=== PATIENT | male | born 1975 | race Caucasian/White ===

== ENCOUNTER → 2021-04-07 08:08 | Outpatient (CLI) | payer OTHER, SELFPAY ==
--- NOTE | 2021-04-07 08:10 | DI.MRI.S_ITS ---
PROCEDURE: MR LUMBAR SPINE WO CON INDICATIONS: Radiculopathy, lumbar region TECHNIQUE: Noncontrast sagittal T1 spin echo and T2 fast echo, sagittal STIR, axial T1 and T2 fast spin echo through the lumbar spine. In cases with scoliosis, additional coronal T2 fast spin echo may be performed. COMPARISON: [facility] [place], CR, XR LUMBAR SPINE WITH OBLIQUES PLUS FLEXION EXTENSION, 02/17/2021, 13:20. None FINDINGS: Image quality: Excellent. Alignment and Curvature: There is normal bony alignment. The prior plain films do not clearly identify the level of the highest non rib-bearing lumbar vertebra. This dictation assumes that there are 5 non rib-bearing lumbar vertebral bodies, and that axial imaging was obtained T12-L1 through L5-S1. Bone Marrow: Marrow is of normal overall signal. No acute vertebral body compression fractures. Spinal Cord: Conus medullaris terminates at the L1 level. Visualized cord demonstrates normal signal and size. Paraspinous Soft Tissues: No paravertebral masses. T12-L1: Mild disc height loss. Mild right paracentral disc protrusion. Indentation on the thecal sac. Mild canal stenosis. Mild bilateral foraminal stenosis. L1-L2: Mild disc height loss. Mild facet hypertrophy. No canal stenosis or foraminal stenosis. L2-L3: No canal stenosis or foraminal stenosis. L3-L4: Facet hypertrophy. Mild canal stenosis. No foraminal stenosis. L4-L5: There is a moderate broad-based disc protrusion which indents on the thecal sac resulting in moderate to severe central canal stenosis. There is impingement of both L5 nerve roots in the lateral recesses. There is mild facet hypertrophy. There is mild right foraminal narrowing and mild to moderate left foraminal narrowing. L5-S1: Mild facet hypertrophy. No canal stenosis or foraminal stenosis. IMPRESSION: 1. If considering surgery, suggest careful correlation for correct surgical level. Current dictation assumes that axial imaging was obtained from T12-L1 through L5-S1. 2. Using the above numbering system, the significant findings are at L4-L5. There is posterior disc protrusion resulting in significant indentation on the thecal sac, moderate to severe central canal stenosis, and impingement of both L5 nerve roots in the lateral recesses. 3. Multilevel degenerative change as described above. 4. At T12-L1, there is a right paracentral disc protrusion resulting in mild canal stenosis. Dictated by: William Hutchins M.D. on 04/07/2021 at 9:50 Approved by: William Hutchins M.D. on 04/07/2021 at 9:57
== END ==
PROVIDERS: PCP Family Medicine; Referring Provider Physical Medicine & Rehabilitation; Visit Provider Physical Medicine & Rehabilitation
DX: M51.16 Intervertebral disc disorders with radiculopathy, lumbar region (principal); M47.26 Other spondylosis with radiculopathy, lumbar region; M51.15 Intervertebral disc disorders with radiculopathy, thoracolumbar region; M48.05 Spinal stenosis, thoracolumbar region; M48.061 Spinal stenosis, lumbar region without neurogenic claudication
CPT/HCPCS: 72148

== ENCOUNTER → 2023-10-29 17:20 | Outpatient (CLI) | payer OTHER, SELFPAY ==
[2023-10-29 17:35] LABS: Add Manual Diff / Slide Review NO; Basophils Absolute Auto 0 /uL (0-100); Basophils Percent Auto 0.5 % (0-2); Eosinophils Absolute Auto 100 /uL (0-450); Eosinophils Percent Auto 1.6 % (2-4); Hematocrit 45.3 % (41-53); Lymphocytes Absolute Auto 1900 /uL (1100-4500); Mean Corpuscular HGB Conc 35.3 % (30-36); Mean Corpuscular Hemoglobin 34.9 PG (26-34); Mean Corpuscular Volume 98.9 fL (80-100); Monocytes Absolute Auto 700 /uL (0-900); Monocytes Percent Auto 9.2 % (3-14); Neutrophils Absolute Auto 5100 /uL (1500-7000); Neutrophils Percent Auto 64.7 % (50-75); Platelet Count 208 X10^3/uL (150-400); Red Blood Cell Count 4.58 X10^6/uL (4.5-5.9); Red Cell Distribution Width 13.1 % (11.6-14.8); White Blood Cell Count 7.9 X10^3/uL (4.5-11.0)
[2023-10-29 17:53] LABS: Cholesterol 207 mg/dL (140-199); HDL Cholesterol 31 mg/dL (40-60); LDL Cholesterol Calculated 136 mg/dL (<100); Triglycerides 201 mg/dL (35-150)
== END ==
PROVIDERS: PCP Family Medicine; Referring Provider Family Medicine; Visit Provider Family Medicine
DX: E78.5 Hyperlipidemia, unspecified (principal); R03.0 Elevated blood-pressure reading, without diagnosis of hypertension
CPT/HCPCS: 36415; 80061; 85025

== ENCOUNTER 2024-02-07 06:51 | Day surgery (SDC) | payer OTHER, SELFPAY ==
--- NOTE | 2024-02-07 | PATH_ITS ---
[facility] Accession Number: [id number] No. of containers..01 Tissue . 01 Material submitted: . esophagus, E-G Junction - GE JUNCTION . 01 Diagnosis: GE JUNCTION: Gastroesophageal junction mucosa with mild chronic inflammation. No goblet cell metaplasia, dysplasia, or malignancy identified. [facility] 02/11/2024 143 Local . 01 Electronically signed: . Reed Alvarenga MD, Pathologist NPI- [id number] . 01 Gross description: . Received in formalin with two patient identifiers and GE junction biopsy, are two mancilla soft tissue fragments, 0.3-0.5 cm in greatest dimension, submitted in A1. ([id number]) /MRV 02/11/20241430 Local . 01 Pathologist provided ICD-10: K20.90 . 01 CPT . 533900 Specimen Comment: A courtesy copy of this report has been sent to [phone] Performed at: [address] [facility] [address], [place], [place] [id number] MD Reed Alvarenga MD Phone: [phone]
[2024-02-07 07:25] VITALS: BP 140/94; PULSE 71; RESP 16; TEMP 36.1; O2SAT 95
[2024-02-07] MEDS: SODIUM CHLORIDE 0.9% 1,000 ML 84 ML IV (07:36)
--- NOTE | 2024-02-07 07:40 | P.HP_ITS ---
History of Present Illness History of Present Illness Date Patient Seen: 02/07/24 Time Patient Seen: 07:40 Chief complaint: EGD/Colonoscopy Narrative: Esteban is a 48 year old man in need of colon cancer screening who also has GERD. See office note for details. FORMERLY [facility], 1928–1983 Medical History Insomnia Annual physical exam Onychomycosis Hyperlipidemia Social History Smoking Status: Never smoker alcohol intake: never Meds Home Medications and Allergies Home Medications Medication Instructions Recorded Confirmed Type sodium,potassium,mag sulfates 17.5 See Rx Instructions PO .COMPLEX 11/28/23 Rx gram-3.13 gram-1.6 gram oral soln #354 mL (Suprep Bowel Prep Kit) terbinafine HCl 250 mg tablet 250 mg PO DAILY 02/07/24 02/07/24 History Allergies Allergy/AdvReac Type Severity Reaction Status Date / Time No Known Drug Allergies Allergy Verified 02/07/24 07:22 Exam Vital Signs (past 8 hours): - 02/07/24 07:25 Temperature 96.9 F L Pulse Rate 71 Respiratory Rate 16 Blood Pressure 140/94 H Pulse Oximetry 95 Oxygen Delivery Method Room Air Oxygen Delivery Method Room Air Const General: healthy appearing Assessment & Plan Assessment and plan (1) Chronic GERD: Status: Acute (2) Encounter for screening for malignant neoplasm of colon: Status: Acute Plan EGD and colonoscopy Time-Based Coding :: [TOTAL MINUTES] spent with patient and on the chart (including review of chart, obtaining history, exam, reviewing outside data, placing orders, documenting exam and treatment plan, and counseling patient) on [DATE].
[2024-02-07 08:22] VITALS: BP 112/79; PULSE 65; RESP 23; TEMP 36.5; O2SAT 95
--- NOTE | 2024-02-07 08:22 | PM.OP.EC ---
Operative Date/Time/Diagnoses Date of procedure: 02/07/24 Time of procedure: 08:22 Pre-op diagnosis: GERD and colon cancer screening Post-op diagnosis: same Procedure & Clinicians Study performed: EGD and colonoscopy Same procedure as scheduled: Yes Surgeon: James Doran Procedure Notes Procedure in detail: Surgeon: James Doran MD Anesthesia: Rafaela Wells CRNA Procedure in detail: A timeout was performed. A bite blocked was placed and monitors were attached to the patient. The patient was positioned in the left lateral decubitus position. Sedation was administered. Once the patient was sedated the endoscope was inserted through the bite block and passed through the esophagus and stomach and into the duodenum. No abnormalities were seen in the duodenal. We then withdrew the scope into the stomach. No abnormalities were noted. The endoscope was retroflexed and a small hiatal hernia was noted. The endoscope was straightned and withdrawn into the esophagus. There were some mild inflammation at the GE junction and random biopsies were taken with cold forceps. EGD findings: Small hiatal hernia at mild inflammation of the GE junction Next we repositioned the patient for a colonoscopy. A digital rectal exam was performed and was normal. The colonoscope was inserted and advanced to the cecum. The appendiceal orifice was identified and photographed. The scope was slowly withdrawn over greater than 6 minutes. No abnormalities were found. The scope was retroflexed in the rectum and no other abnormalities were seen. Colonoscopy findings: Normal colon Total procedural EBL: 5 mL Scope withdrawal time: Greater than 6 minutes Sedation minutes: 28 minutes Post-procedure Recommendations: Colonscopy in 10 years Disposition: PACU
[2024-02-07 08:26] VITALS: BP 109/83; PULSE 61; RESP 18; O2SAT 94
[2024-02-07 08:31] VITALS: BP 118/82; PULSE 66; RESP 18; TEMP 36.6; O2SAT 96
[2024-02-07 08:38] VITALS: BP 126/77; PULSE 62; RESP 18; O2SAT 95
== END 2024-02-07 08:52 | disposition home or self-care (01) ==
PROVIDERS: PCP Family Medicine; Referring Provider Surgery; Visit Provider Surgery
PROC: 0DJ08ZZ Inspection of Upper Intestinal Tract, Via Natural or Artificial Opening Endoscopic (ICD-10-PCS; CPT 43239; principal; 2024-02-07 07:45)
PROC: 0DJD8ZZ Inspection of Lower Intestinal Tract, Via Natural or Artificial Opening Endoscopic (ICD-10-PCS; CPT 45378; 2024-02-07 07:45)
DX: Z12.11 Encounter for screening for malignant neoplasm of colon (principal); K21.9 Gastro-esophageal reflux disease without esophagitis; K44.9 Diaphragmatic hernia without obstruction or gangrene; K20.90 Esophagitis, unspecified without bleeding
CPT/HCPCS: 43239; 45378; J2704